=== PATIENT | female | born 1985 | race Hispanic/Latino ===

== ENCOUNTER 2019-08-19 19:48 | Emergency (ER) | payer OTHER ==
[2019-08-19] MEDS ORDERED: MAGNESIUM HYDROXIDE 30 ML/UDCUP ONE (20:07)
[2019-08-19] MEDS ORDERED: LIDOCAINE HCL 2% VISCOUS 15 ML UDCUP ONE (20:07)
[2019-08-19] MEDS ORDERED: PREDNISONE 20 MG TABLET ONE (21:18)
[2019-08-19] MEDS ORDERED: AZITHROMYCIN 250 MG TABLET PO ONE (21:19)
== END 2019-08-19 21:37 | disposition home or self-care (01) ==
LOC: EDH 19:48
DX: J20.9 Acute bronchitis, unspecified (principal)
CPT/HCPCS: 36415; 71045; 87633; 87804